=== PATIENT | female | born 1940 | race Caucasian/White ===

== ENCOUNTER 2018-05-19 05:26 | Emergency (ER) | payer MEDICARE, BC, OTHER ==
--- NOTE | 2018-05-19 06:54 | ED ---
Lower Extremity - HPI Summary HPI Summary: Lt knee acute on chronic - twisted while weight bearing - pain along medial aspect. Better w/ rest, heat and ibuprofen. H/o arthritis. PT for Rt knee in the past which was helpful. Denies numbness, tingling, weakness. - History of Current Complaint Chief Complaint: EDExtremityLower Stated Complaint: LT KNEE PAIN Time Seen by Provider: 05/19/18 05:41 Hx Obtained From: Patient Pain Intensity: 7 - Allergies/Home Medications Allergies/Adverse Reactions: Allergies Allergy/AdvReac Type Severity Reaction Status Date / Time SULFA Allergy ANAPHYLACTI Uncoded 05/19/18 05:28 C PMH/Surg Hx/FS Hx/Imm Hx Previously Healthy: Yes Endocrine/Hematology History: Denies: Hx Anticoagulant Therapy - takes ASA daily, Hx Blood Disorders Cardiovascular History: Reports: Hx Atrial Fibrillation - intermittent, Hx Hypertension - BORDERLINE, Hx Rheumatic Fever - A CHILD Musculoskeletal History: Reports: Hx Arthritis - OSTEO- KNEES Denies: Hx Osteoporosis Sensory History: Reports: Hx Cataracts - RIGHT EYE, Hx Contacts or Glasses - GLASSES Denies: Hx Hearing Aid Opthamlomology History: Reports: Hx Cataracts - RIGHT EYE, Hx Contacts or Glasses - GLASSES Psychiatric History: Reports: Hx Anxiety - STRESS RELATED Infectious Disease History: No Infectious Disease History: Denies: Traveled Outside the [place] in Last 30 Days - Family History Known Family History: Positive: Diabetes - father - Social History Occupation: Retired Lives: With Family - Alcohol Use: Occasionally Hx Substance Use: No Substance Use Type: Reports: None Hx Tobacco Use: Yes - not currently Smoking Status (MU): Former Smoker Amount Used/How Often: <1PPD X 5 YEARS Review of Systems Constitutional: Negative Negative: Fever, Chills, Fatigue Positive: no symptoms reported Positive: Arthralgia Skin: Negative Neurological: Negative Psychological: Normal All Other Systems Reviewed And Are Negative: Yes Physical Exam Triage Information Reviewed: Yes Vital Signs On Initial Exam: Initial Vitals Temp Pulse Resp BP Pulse Ox 97.5 F 50 16 122/53 97 05/19/18 05:29 05/19/18 05:29 05/19/18 05:29 05/19/18 05:29 05/19/18 05:29 Vital Signs Reviewed: Yes Diagnostics - Vital Signs Vital Signs Temp Pulse Resp BP Pulse Ox 05/19/18 06:36 42 133/51 98 05/19/18 06:24 54 05/19/18 06:04 41 95 05/19/18 05:29 97.5 F 50 16 122/53 97 - Laboratory Lab Statement: Any lab studies that have been ordered have been reviewed, and results considered in the medical decision making process. Lower Extremity Course/Dx - Diagnoses Provider Diagnoses: Knee sprain Discharge - Sign-Out/Discharge Documenting (check all that apply): Patient Departure - Discharge Plan Condition: Stable Disposition: HOME Patient Education Materials: Osteoarthritis (ED) Referrals: Dennis Castro MD [Primary Care Provider] - Additional Instructions: You appear to have an arthritis flair up. This may be treated as per your handout (ie. heat, gentle stretches, NSAID's with food, topical analgesics, etc) . Follow-up with Dr. Logan for further care (ie. non-weight bearing PT, etc) If you develop numbness, tingling, weakness or inability to bear weight, return to the ED - Billing Disposition and Condition Condition: STABLE Disposition: Home - Attestation Statements Document Initiated by Scribe: Dari
[2018-05-19 07:01] VITALS: BP 137/78
--- NOTE | 2018-05-19 08:02 | RAD ---
Indication: LEFT knee pain following twisting injury. Medial aspect pain. Arthritis. Comparison: No relevant prior exams available on the [facility] for comparison. Technique: LEFT knee: Weightbearing AP and lateral views. Report: Small joint effusion. Negative for fracture. Tricompartmental osteoarthritis with osteophytosis and joint space narrowing most marked at the medial and patellofemoral joints. Associated partial flattening of the articular surfaces and subchondral sclerosis. Resulting slight varus angulation. IMPRESSION: #. Negative for fracture. #. Advanced osteoarthritis. #. Small joint effusion. R1
== END 2018-05-19 07:00 | disposition home or self-care (01) ==
LOC: ED 05:26
DX: M25.562 Pain in left knee (principal); X50.1XXA Overexertion from prolonged static or awkward postures, initial encounter; Y92.9 Unspecified place or not applicable; Z79.82 Long term (current) use of aspirin; I48.91 Unspecified atrial fibrillation; Z87.891 Personal history of nicotine dependence; M25.462 Effusion, left knee; M17.12 Unilateral primary osteoarthritis, left knee
CPT/HCPCS: 99282

== ENCOUNTER 2023-04-30 12:00 | Inpatient (IN) ==
[2023-04-30 12:56] LABS: Hematocrit 30.4 % (35-45); Hemoglobin 10.3 g/dL (11.5-14.3); Mean Corpuscular Hemoglobin 31.5 pg (27-33); Mean Corpuscular Hgb Conc 33.9 g/dL (31-36); Mean Corpuscular Volume 92.8 fL (80-97); Mean Platelet Volume 9.5 fL (7.5-11.2); Platelet Count 105 10^3/uL (150-450); Red Blood Count 3.28 10^6/uL (3.63-4.92); Red Cell Distribution Width 16.6 % (12-17); White Blood Count 8.4 10^3/uL (3.8-11.8)
[2023-04-30 13:16] LABS: Albumin 2.7 g/dL (3.2-5.2); Albumin/Globulin Ratio 1.1 (1-3); C Reactive Protein 40.14 mg/L (<8.01); Creatinine, Serum 0.9 mg/dL (0.51-0.95); Globulin 2.5 g/dL (2-4); Potassium 2.9 mmol/L (3.5-5.0); Total Bilirubin 1.2 mg/dL (0.2-1.0); Total Protein 5.2 g/dL (6.4-8.9); eGFR CKD-EPI 63.8 (>60)
[2023-04-30 13:54] LABS: ABS Basophils 0.1 10^3/uL (0.0-0.1); ABS Monocytes 1.6 10^3/uL (0.0-0.9); ABS Neutrophils 5.6 10^3/uL (1.5-7.6); ABS Nucleated RBC 0.02 10^3/ul; Eosinophil % 0.5 %; Lymphocyte % 12.4 %; Nucleated Red Blood Cells % 0.3 /100 WBC (0.0-0.4)
[2023-04-30 14:33] LABS: Activated Partial Thrombo Time 24.6 seconds (26.0-38.0); INR 1.42 (0.88-1.18)
[2023-04-30 14:46] LABS: High Sensitivity Troponin 1 Hr 93 pg/mL (<15)
[2023-04-30] MEDS ORDERED: Furosemide 40 mg/4 ml IV VIAL IV SLOW PU ONE (15:11)
[2023-04-30] MEDS ORDERED: Potassium Chlor 20 meq TAB.ER PO ONE (15:31)
[2023-04-30] MEDS: KCL 20 MEQ/100 ML IVPREMIX 20 MEQ/100 ML BAG IV SCH ×2 (15:38→17:05)
[2023-04-30] MEDS ORDERED: Ondansetron 4 mg VIAL 2 MG/ML 2 ml VIAL IV ONE (16:04)
[2023-04-30 16:18] LABS: Urine Appearance Clear; Urine Bilirubin Negative (Negative); Urine Blood Negative (Negative); Urine Color Amber; Urine Glucose Negative (Negative); Urine Ketones Negative (Negative); Urine Nitrite Negative (Negative); Urine Protein Negative (Negative); Urine Specific Gravity 1.018 (1.002-1.030); Urine Urobilinogen Positive (Negative)
[2023-04-30] MEDS ORDERED: Ondansetron 4 mg VIAL 2 MG/ML 2 ml VIAL IV PRN (16:50)
[2023-04-30] MEDS ORDERED: Iodixanol (CONTRAST) 320 MG/ML 100 ML SDV IV ONE (17:30)
[2023-04-30] MEDS ORDERED: Senna TAB 8.6 mg TAB PO PRN (17:39)
[2023-04-30] MEDS ORDERED: Enoxaparin 100 MG/ML SYR SUBCUT SCH (18:00)
[2023-04-30] MEDS ORDERED: Remdesivir 100 mg Vial 200 MG in NS 0.9% 250 ml 210 ML IV ONE (18:30)
[2023-04-30] MEDS: dilTIAZem 30 MG TAB PO SCH (20:40)
[2023-04-30 21:00] LABS: Potassium 3.7 mmol/L (3.5-5.0)
[2023-04-30 21:05] LABS: Creatinine, Serum 0.95 mg/dL (0.51-0.95); eGFR CKD-EPI 59.8 (>60)
[2023-05-01] MEDS ORDERED: Lactated Ringers 1000 ml BAG 1,000 ML IV SCH (09:00)
[2023-05-01] MEDS: Enoxaparin 100 MG/ML SYR SUBCUT SCH ×2 (09:41→20:30)
[2023-05-01] MEDS: dilTIAZem 30 MG TAB PO SCH ×2 (09:41→20:31)
[2023-05-01 10:32] LABS: Albumin 2.7 g/dL (3.2-5.2); Creatinine, Serum 0.82 mg/dL (0.51-0.95); Globulin 2.6 g/dL (2-4); Magnesium 1.6 mg/dL (1.9-2.7); Potassium 3.6 mmol/L (3.5-5.0); Total Protein 5.3 g/dL (6.4-8.9); eGFR CKD-EPI 71.4 (>60)
[2023-05-01 10:34] LABS: ABS Lymphocytes 0.4 10^3/uL (1.0-4.8); ABS Monocytes 0.2 10^3/uL (0.0-0.9); ABS Neutrophils 6.1 10^3/uL (1.5-7.6); ABS Nucleated RBC 0.01 10^3/ul; Hematocrit 29.5 % (35-45); Hemoglobin 10.1 g/dL (11.5-14.3); Lymphocyte % 6.5 %; Mean Corpuscular Hemoglobin 31.7 pg (27-33); Mean Corpuscular Hgb Conc 34.2 g/dL (31-36); Mean Corpuscular Volume 92.7 fL (80-97); Mean Platelet Volume 9.4 fL (7.5-11.2); Nucleated Red Blood Cells % 0.1 /100 WBC (0.0-0.4); Platelet Count 115 10^3/uL (150-450); Red Blood Count 3.18 10^6/uL (3.63-4.92); Red Cell Distribution Width 16.4 % (12-17); White Blood Count 6.8 10^3/uL (3.8-11.8)
[2023-05-01 10:47] LABS: INR 1.44 (0.88-1.18)
[2023-05-01] MEDS ORDERED: Magnesium Sulfate 2 gm BAG 2 GM/50 ML BAG IVPB ONE (19:38)
[2023-05-01] MEDS: Remdesivir 100 mg Vial 100 MG in NS 0.9% 250 ml 230 ML IV SCH (22:37)
[2023-05-02 06:25] LABS: ABS Lymphocytes 0.6 10^3/uL (1.0-4.8); ABS Monocytes 0.8 10^3/uL (0.0-0.9); ABS Neutrophils 9.1 10^3/uL (1.5-7.6); ABS Nucleated RBC 0.02 10^3/ul; Hematocrit 27.6 % (35-45); Hemoglobin 9.6 g/dL (11.5-14.3); Lymphocyte % 5.7 %; Mean Corpuscular Hemoglobin 31.9 pg (27-33); Mean Corpuscular Hgb Conc 34.6 g/dL (31-36); Mean Corpuscular Volume 92.2 fL (80-97); Mean Platelet Volume 9.1 fL (7.5-11.2); Nucleated Red Blood Cells % 0.2 /100 WBC (0.0-0.4); Platelet Count 130 10^3/uL (150-450); Red Blood Count 2.99 10^6/uL (3.63-4.92); Red Cell Distribution Width 16.5 % (12-17); White Blood Count 10.5 10^3/uL (3.8-11.8)
[2023-05-02 06:32] LABS: INR 1.6 (0.88-1.18)
[2023-05-02 06:41] LABS: Albumin 2.6 g/dL (3.2-5.2); Calcium 7.9 mg/dL (8.6-10.3); Creatinine, Serum 0.81 mg/dL (0.51-0.95); Globulin 2.6 g/dL (2-4); Potassium 3.2 mmol/L (3.5-5.0); Total Bilirubin 0.9 mg/dL (0.2-1.0); Total Protein 5.2 g/dL (6.4-8.9); eGFR CKD-EPI 72.4 (>60)
[2023-05-02] MEDS: dilTIAZem 30 MG TAB PO SCH ×2 (11:25→21:51)
[2023-05-02] MEDS: Enoxaparin 100 MG/ML SYR SUBCUT SCH ×2 (11:25→21:51)
[2023-05-02] MEDS: KCL 20 MEQ/100 ML IVPREMIX 20 MEQ/100 ML BAG IV SCH ×2 (15:48→18:21)
[2023-05-02] MEDS: Remdesivir 100 mg Vial 100 MG in NS 0.9% 250 ml 230 ML IV SCH (21:51)
[2023-05-03 05:22] LABS: Albumin 2.5 g/dL (3.2-5.2); Calcium 7.7 mg/dL (8.6-10.3); Creatinine, Serum 0.8 mg/dL (0.51-0.95); Globulin 2.4 g/dL (2-4); Potassium 3.6 mmol/L (3.5-5.0); Total Bilirubin 0.9 mg/dL (0.2-1.0); Total Protein 4.9 g/dL (6.4-8.9); eGFR CKD-EPI 73.5 (>60)
[2023-05-03 05:26] LABS: INR 1.51 (0.88-1.18)
[2023-05-03] MEDS: dilTIAZem 30 MG TAB PO SCH ×2 (10:04→21:25)
[2023-05-03] MEDS: Enoxaparin 100 MG/ML SYR SUBCUT SCH ×2 (10:36→21:25)
[2023-05-03 14:33] LABS: Hematocrit 29.1 % (35-45); Hemoglobin 9.8 g/dL (11.5-14.3); Mean Corpuscular Hemoglobin 31.4 pg (27-33); Mean Corpuscular Hgb Conc 33.5 g/dL (31-36); Mean Corpuscular Volume 93.7 fL (80-97); Mean Platelet Volume 9.2 fL (7.5-11.2); Platelet Count 149 10^3/uL (150-450); Red Blood Count 3.11 10^6/uL (3.63-4.92); Red Cell Distribution Width 17.4 % (12-17)
[2023-05-03 15:03] LABS: ABS Lymphocytes 0.3 10^3/uL (1.0-4.8); ABS Neutrophils 7.7 10^3/uL (1.5-7.6); ABS Nucleated RBC 0.01 10^3/ul; Anisocytosis 1+; Lymphocyte % 3.7 %; Nucleated Red Blood Cells % 0.1 /100 WBC (0.0-0.4); Tear Drop Cells 1+
[2023-05-03] MEDS: Remdesivir 100 mg Vial 100 MG in NS 0.9% 250 ml 230 ML IV SCH (21:26)
[2023-05-04 06:29] LABS: INR 1.51 (0.88-1.18)
[2023-05-04 06:44] LABS: Albumin 2.6 g/dL (3.2-5.2); Calcium 7.9 mg/dL (8.6-10.3); Creatinine, Serum 0.78 mg/dL (0.51-0.95); Globulin 2.5 g/dL (2-4); Potassium 3.3 mmol/L (3.5-5.0); Total Bilirubin 0.8 mg/dL (0.2-1.0); Total Protein 5.1 g/dL (6.4-8.9); eGFR CKD-EPI 75.8 (>60)
[2023-05-04 09:55] VITALS: BP 121/65
[2023-05-04] MEDS: dilTIAZem 30 MG TAB PO SCH (09:58)
[2023-05-04] MEDS: Enoxaparin 100 MG/ML SYR SUBCUT SCH (09:59)
== END 2023-05-04 14:52 | disposition home or self-care (01) | DRG 177 ==
LOC: ED 12:00 → MEDTELE 17:30 → EDHOLD 17:59 → SUATTDRO 17:59 → MEDTELE 18:04
PROVIDERS: ADMIT Internal Medicine; ATTEND Student in an Organized Health Care Education/Training Program

== ENCOUNTER 2023-05-11 01:47 | Inpatient (IN) ==
[2023-05-11] MEDS ORDERED: Metoclopramide 5 MG/ML VIAL (10 mg) IV ONE (02:19)
[2023-05-11] MEDS ORDERED: Lactated Ringers 1000 ml BAG 1,000 ML IV ONE (02:19)
[2023-05-11 03:07] LABS: Hematocrit 23.2 % (35-45); Hemoglobin 7.9 g/dL (11.5-14.3); Mean Corpuscular Volume 97.3 fL (80-97); Red Blood Count 2.39 10^6/uL (3.63-4.92); Red Cell Distribution Width 25.2 % (12-17); White Blood Count 12.7 10^3/uL (3.8-11.8)
[2023-05-11 03:13] LABS: INR 1.37 (0.83-1.13)
[2023-05-11 03:21] LABS: Albumin 2.5 g/dL (3.2-5.2); Albumin/Globulin Ratio 1.3 (1-3); Calcium 7.8 mg/dL (8.6-10.3); Creatinine, Serum 1.25 mg/dL (0.51-0.95); Total Bilirubin 1.9 mg/dL (0.2-1.0); Total Protein 4.5 g/dL (6.4-8.9)
[2023-05-11 03:28] LABS: Activated Partial Thrombo Time 89.7 seconds (26.0-38.0)
[2023-05-11 04:06] LABS: Anisocytosis 3+; Polychromasia 1+
[2023-05-11 04:07] LABS: ABS Basophils 0.1 10^3/uL (0.0-0.1); ABS Lymphocytes 0.1 10^3/uL (1.0-4.8); ABS Monocytes 0.2 10^3/uL (0.0-0.9); ABS Neutrophils 12.3 10^3/uL (1.5-7.6); Lymphocyte % 1.1 %; Mean Platelet Volume 11.7 fL (7.5-11.2); Platelet Count 52 10^3/uL (150-450)
[2023-05-11] MEDS ORDERED: Pantoprazole VIAL 40 MG VIAL IV ONE (05:28)
[2023-05-11] MEDS ORDERED: Ondansetron 4 mg VIAL 2 MG/ML 2 ml VIAL IV PRN (07:01)
[2023-05-11] MEDS ORDERED: Polyethylene Glycol 3350 17 GM PACKET PO PRN (07:01)
[2023-05-11] MEDS: Dexamethasone IV 4 MG/ML VIAL 1 ml VIAL IV SLOW PU SCH (13:22)
[2023-05-11] MEDS ORDERED: cefTRIAXone 1 gm/50 mL D5W 1 GM/50 ML BAG IV SCH (18:00)
[2023-05-11] MEDS: Acetaminophen IV 1 GM/100ML 1,000 MG/100 ML BAG IV PRN (18:20)
[2023-05-12] MEDS: Acetaminophen IV 1 GM/100ML 1,000 MG/100 ML BAG IV PRN (02:27)
[2023-05-12 05:38] LABS: Calcium 7.7 mg/dL (8.6-10.3); Creatinine, Serum 1.71 mg/dL (0.51-0.95); Magnesium 1.9 mg/dL (1.9-2.7); Potassium 3.9 mmol/L (3.5-5.0); eGFR CKD-EPI 29.5 (>60)
[2023-05-12 06:29] LABS: Hematocrit 23.8 % (35-45); Hemoglobin 8.1 g/dL (11.5-14.3); Mean Corpuscular Hemoglobin 32.2 pg (27-33); Mean Corpuscular Hgb Conc 34.1 g/dL (31-36); Mean Corpuscular Volume 94.4 fL (80-97); Mean Platelet Volume 10.9 fL (7.5-11.2); Platelet Count 17 10^3/uL (150-450); Red Blood Count 2.52 10^6/uL (3.63-4.92); Red Cell Distribution Width 23.5 % (12-17); White Blood Count 0.5 10^3/uL (3.8-11.8)
[2023-05-12 06:34] LABS: Anisocytosis 3+
[2023-05-12] MEDS ORDERED: Pantoprazole VIAL 40 MG VIAL IV SCH (09:00)
[2023-05-12] MEDS: Dexamethasone IV 4 MG/ML VIAL 1 ml VIAL IV SLOW PU SCH (10:45)
[2023-05-12] MEDS: Pantoprazole VIAL 40 MG VIAL IV SCH ×2 (10:45→20:46)
[2023-05-12] MEDS: Cefepime 1 GM in Dextrose 1 GM/50 ML BAG IV SCH ×2 (10:45→20:46)
[2023-05-12 13:08] LABS: Urine Sodium Concentration < 18 mmol/L
[2023-05-12 13:16] LABS: Osmolality Serum 306 mOsm/kg (275-295)
[2023-05-12 15:25] LABS: Urine Creatinine Concentration 64.09 mg/dL (20.00-320.00)
[2023-05-12 16:28] LABS: Urine Osmo 520 mOsm/kg (150-1150)
[2023-05-12 16:36] LABS: C Reactive Protein 180.4 mg/L (<8.01)
[2023-05-12] MEDS ORDERED: Lactated Ringers 1000 ml BAG 1,000 ML IV SCH (17:00)
[2023-05-12 17:51] LABS: RBC Parasite Smear No Parasites Seen (No Parasite)
[2023-05-12 20:18] LABS: Hemoglobin 8.8 g/dL (11.5-14.3)
[2023-05-12 20:27] LABS: Mean Platelet Volume 10.4 fL (7.5-11.2); Platelet Count 23 10^3/uL (150-450)
[2023-05-13] MEDS ORDERED: Lactated Ringers 1000 ml BAG 500 ML IV ONE ×3 (00:35→23:45)
[2023-05-13] MEDS: Acetaminophen IV 1 GM/100ML 1,000 MG/100 ML BAG IV PRN (03:08)
[2023-05-13] MEDS ORDERED: Lactated Ringers 1000 ml BAG 1,000 ML IV ONE (05:36)
[2023-05-13] MEDS ORDERED: DOXYcycline 100 MG in NS 0.9% 250 ml 250 ML IVPB ONE (06:00)
[2023-05-13 07:01] LABS: Albumin/Globulin Ratio 1.2 (1-3); Calcium 6.8 mg/dL (8.6-10.3); Creatinine, Serum 1.59 mg/dL (0.51-0.95); Globulin 1.7 g/dL (2-4); Potassium 4.2 mmol/L (3.5-5.0); Total Bilirubin 1.5 mg/dL (0.2-1.0); Total Protein 3.7 g/dL (6.4-8.9); eGFR CKD-EPI 32.2 (>60)
[2023-05-13 08:44] LABS: Hematocrit 24.1 % (35-45); Hemoglobin 8.4 g/dL (11.5-14.3); Mean Corpuscular Hemoglobin 32.3 pg (27-33); Mean Corpuscular Volume 92.2 fL (80-97); Mean Platelet Volume 9.7 fL (7.5-11.2); Platelet Count 11 10^3/uL (150-450); Red Blood Count 2.61 10^6/uL (3.63-4.92); Red Cell Distribution Width 19.9 % (12-17); White Blood Count 0.6 10^3/uL (3.8-11.8)
[2023-05-13] MEDS: Pantoprazole VIAL 40 MG VIAL IV SCH ×2 (09:24→21:50)
[2023-05-13] MEDS: Dexamethasone IV 4 MG/ML VIAL 1 ml VIAL IV SLOW PU SCH (09:24)
[2023-05-13] MEDS ORDERED: Albumin Human 25% 25 GM/100 ML BTL IV ONE (09:49)
[2023-05-13] MEDS: Cefepime 1 GM in Dextrose 1 GM/50 ML BAG IV SCH ×2 (10:02→21:44)
[2023-05-13] MEDS ORDERED: Vancomycin 1,500 MG in NS 0.9% 250 ml 250 ML IVPB ONE ×2 (10:19→11:00)
[2023-05-13 10:39] LABS: Acanthocytes 1+
[2023-05-13 10:40] LABS: ABS Neutrophils 0.5 10^3/uL (1.5-7.6); ABS Nucleated RBC 0.01 10^3/ul; Anisocytosis 3+; Eosinophil % 3.5 %; Lymphocyte % 6.3 %; Nucleated Red Blood Cells % 1.2 /100 WBC (0.0-0.4)
[2023-05-13] MEDS ORDERED: Albumin Human 5% 12.5 GM/250 ML BTL IV ONE (10:54)
[2023-05-13] MEDS ORDERED: Vancomycin per Pharmacy 1 EA NOTE FOLLOW UP PRN (10:57)
[2023-05-13 21:16] LABS: Hematocrit 23.9 % (35-45); Hemoglobin 8.6 g/dL (11.5-14.3); Mean Corpuscular Hemoglobin 33.1 pg (27-33); Mean Corpuscular Hgb Conc 35.9 g/dL (31-36); Mean Corpuscular Volume 92.1 fL (80-97); Mean Platelet Volume 9.7 fL (7.5-11.2); Platelet Count 9 10^3/uL (150-450); Red Blood Count 2.59 10^6/uL (3.63-4.92); Red Cell Distribution Width 17.8 % (12-17); White Blood Count 0.7 10^3/uL (3.8-11.8)
[2023-05-13 21:32] LABS: ABS Neutrophils 0.6 10^3/uL (1.5-7.6); Lymphocyte % 6.4 %; Nucleated Red Blood Cells % 0.1 /100 WBC (0.0-0.4)
[2023-05-13 21:42] LABS: Calcium 7.5 mg/dL (8.6-10.3); Creatinine, Serum 1.39 mg/dL (0.51-0.95); Potassium 4.1 mmol/L (3.5-5.0); eGFR CKD-EPI 37.9 (>60)
[2023-05-13 22:11] LABS: Activated Partial Thrombo Time 48.3 seconds (26.0-38.0); INR 1.4 (0.83-1.13)
[2023-05-14] MEDS ORDERED: Norepinephrine 16MCG/ML BAGD5W 4,000 MCG/250 ML BAG IV ONE (00:25)
[2023-05-14] MEDS: Norepinephrine 16MCG/ML BAGD5W 4,000 MCG/250 ML BAG IV SCH ×2 (00:29→12:49)
[2023-05-14 01:11] LABS: Hematocrit 24.1 % (35-45); Hemoglobin 8.7 g/dL (11.5-14.3); Mean Corpuscular Hemoglobin 33.3 pg (27-33); Mean Corpuscular Hgb Conc 35.9 g/dL (31-36); Mean Corpuscular Volume 92.6 fL (80-97); Platelet Count 15 10^3/uL (150-450); Red Cell Distribution Width 18.3 % (12-17); White Blood Count 0.6 10^3/uL (3.8-11.8)
[2023-05-14 04:13] LABS: ABS Neutrophils 0.6 10^3/uL (1.5-7.6); Calcium 7.5 mg/dL (8.6-10.3); Creatinine, Serum 1.35 mg/dL (0.51-0.95); Eosinophil % 2.4 %; Hematocrit 24.4 % (35-45); Hemoglobin 8.7 g/dL (11.5-14.3); Lymphocyte % 7.5 %; Magnesium 1.8 mg/dL (1.9-2.7); Mean Corpuscular Hemoglobin 33.2 pg (27-33); Mean Corpuscular Hgb Conc 35.7 g/dL (31-36); Mean Platelet Volume 8.3 fL (7.5-11.2); Nucleated Red Blood Cells % 0.3 /100 WBC (0.0-0.4); Platelet Count 14 10^3/uL (150-450); Red Blood Count 2.62 10^6/uL (3.63-4.92); Red Cell Distribution Width 19.3 % (12-17); White Blood Count 0.6 10^3/uL (3.8-11.8); eGFR CKD-EPI 39.2 (>60)
[2023-05-14] MEDS ORDERED: Magnesium Sulfate 2 gm BAG 2 GM/50 ML BAG IVPB ONE (05:49)
[2023-05-14] MEDS: Dexamethasone IV 4 MG/ML VIAL 1 ml VIAL IV SLOW PU SCH (09:25)
[2023-05-14] MEDS: Pantoprazole VIAL 40 MG VIAL IV SCH ×2 (09:26→20:59)
[2023-05-14] MEDS: Cefepime 1 GM in Dextrose 1 GM/50 ML BAG IV SCH ×2 (09:52→20:59)
[2023-05-14 11:02] LABS: TSH Ultra Thyroid Stim Horm 0.13 mcIU/mL (0.34-5.60)
[2023-05-14 11:54] LABS: Free T4 1.01 ng/dL (0.61-1.12)
[2023-05-14] MEDS: Vancomycin 1000 MG in NS 0.9% 250 ML IVPB SCH (12:03)
[2023-05-14] MEDS: Acetaminophen IV 1 GM/100ML 1,000 MG/100 ML BAG IV PRN ×2 (14:03→23:58)
[2023-05-14 18:36] LABS: % Iron Saturation 64 % (15-55); .Transferrin < 75 mg/dL (203-362); Iron 67 ug/dL (50-212); Total Iron Binding Capacity 105 mcg/dL (250-450); Unsaturated Iron Binding 38 ug/dL
[2023-05-14 18:56] LABS: Vitamin B12 > 1450 pg/mL (180-914)
[2023-05-14 21:27] LABS: Ferritin 3122.3 ng/mL (11-307)
[2023-05-15] MEDS: Norepinephrine 16MCG/ML BAGD5W 4,000 MCG/250 ML BAG IV SCH ×2 (00:01→07:19)
[2023-05-15] MEDS ORDERED: Piperacillin/Tazobac 3.375 BAG 3.375 GM/100 ML BAG IV ONE (05:48)
[2023-05-15] MEDS ORDERED: Zosyn per Pharmacy NOTE FOLLOW UP SCH (06:00)
[2023-05-15 06:37] LABS: Hematocrit 20.9 % (35-45); Hemoglobin 7.4 g/dL (11.5-14.3); Mean Corpuscular Hemoglobin 32.9 pg (27-33); Mean Corpuscular Hgb Conc 35.5 g/dL (31-36); Mean Corpuscular Volume 92.7 fL (80-97); Platelet Count 3 10^3/uL (150-450); Red Blood Count 2.25 10^6/uL (3.63-4.92); Red Cell Distribution Width 18.7 % (12-17); White Blood Count 0.7 10^3/uL (3.8-11.8)
[2023-05-15 06:55] LABS: Calcium 7.3 mg/dL (8.6-10.3); Creatinine, Serum 1.19 mg/dL (0.51-0.95); Magnesium 2.1 mg/dL (1.9-2.7); Potassium 3.6 mmol/L (3.5-5.0); eGFR CKD-EPI 45.7 (>60)
[2023-05-15] MEDS ORDERED: Thiamine 100 MG/ML 2 ml VIAL 500 MG in NS 0.9% 250 ml 250 ML IV ONE (07:43)
[2023-05-15 08:20] LABS: ABS Lymphocytes 0.1 10^3/uL (1.0-4.8); ABS Neutrophils 0.5 10^3/uL (1.5-7.6); Eosinophil % 1.2 %; Lymphocyte % 15.7 %; Nucleated Red Blood Cells % 0.2 /100 WBC (0.0-0.4)
[2023-05-15] MEDS: Pantoprazole VIAL 40 MG VIAL IV SCH ×2 (08:55→21:08)
[2023-05-15] MEDS: Dexamethasone IV 4 MG/ML VIAL 1 ml VIAL IV SLOW PU SCH (08:55)
[2023-05-15] MEDS: ZOSYN 3.375 GM Q8H per EXTENDED INFUSION IV SCH ×2 (12:28→21:05)
[2023-05-15 13:04] LABS: Anaplasma phagocytophilum Negative (Negative); B. miyamotoi PCR, B Negative (Negative); Babesia divergens/MO-1 Negative (Negative); Babesia ducani Negative (Negative); Ehrlichia chaffeensis Negative (Negative); Ehrlichia ewingii/canis Negative (Negative); Ehrlichia muris eauclairensis Negative (Negative)
[2023-05-15] MEDS: Vancomycin 1000 MG in NS 0.9% 250 ML IVPB SCH (13:58)
[2023-05-15] MEDS ORDERED: Dextrose 50% Syringe 50 ml 25 GM/50 ML SYRINGE IV PUSH PRN (14:01)
[2023-05-15 15:54] LABS: Hematocrit 18.5 % (35-45); Mean Corpuscular Hemoglobin 32.1 pg (27-33); Mean Corpuscular Hgb Conc 34.6 g/dL (31-36); Mean Corpuscular Volume 92.9 fL (80-97); Red Blood Count 1.99 10^6/uL (3.63-4.92); Red Cell Distribution Width 19.2 % (12-17); White Blood Count 0.4 10^3/uL (3.8-11.8)
[2023-05-15 15:58] LABS: ABS Neutrophils 0.3 10^3/uL (1.5-7.6); Hemoglobin 6.4 g/dL (11.5-14.3)
[2023-05-15 16:37] LABS: ABS Lymphocytes 0.1 10^3/uL (1.0-4.8); Eosinophil % 0.7 %; Lymphocyte % 16.1 %; Mean Platelet Volume 7.7 fL (7.5-11.2); Nucleated Red Blood Cells % 0.5 /100 WBC (0.0-0.4); Platelet Count 15 10^3/uL (150-450)
[2023-05-15] MEDS ORDERED: Calcium Carbonate LIQ 1,250 mg/5 ml UDC PO ONE (17:46)
[2023-05-15 22:02] LABS: Hematocrit 21.3 % (35-45); Hemoglobin 7.5 g/dL (11.5-14.3)
[2023-05-16 05:15] LABS: Hematocrit 21.8 % (35-45); Hemoglobin 7.7 g/dL (11.5-14.3)
[2023-05-16] MEDS: ZOSYN 3.375 GM Q8H per EXTENDED INFUSION IV SCH ×2 (05:16→15:01)
[2023-05-16 05:28] LABS: Hematocrit 22.4 % (35-45); Hemoglobin 7.8 g/dL (11.5-14.3); Mean Corpuscular Hemoglobin 32.4 pg (27-33); Mean Corpuscular Volume 92.6 fL (80-97); Mean Platelet Volume 9.3 fL (7.5-11.2); Platelet Count 3 10^3/uL (150-450); Red Blood Count 2.42 10^6/uL (3.63-4.92); Red Cell Distribution Width 16.9 % (12-17); White Blood Count 0.3 10^3/uL (3.8-11.8)
[2023-05-16 05:29] LABS: Calcium 7.9 mg/dL (8.6-10.3); Creatinine, Serum 1.07 mg/dL (0.51-0.95); Potassium 3.5 mmol/L (3.5-5.0); eGFR CKD-EPI 51.9 (>60)
[2023-05-16 05:52] LABS: Hypochromasia 1+; Polychromasia 1+
[2023-05-16 05:53] LABS: ABS Lymphocytes 0.1 10^3/uL (1.0-4.8); ABS Neutrophils 0.2 10^3/uL (1.5-7.6); Lymphocyte % 35.2 %
[2023-05-16] MEDS ORDERED: Potassium Chloride LIQUID 20 MEQ/15 ML LIQUID NG TUBE ONE (06:16)
[2023-05-16] MEDS: Dexamethasone IV 4 MG/ML VIAL 1 ml VIAL IV SLOW PU SCH (08:01)
[2023-05-16] MEDS ORDERED: Insulin GLARGINE 100 un/ml 10 ml VIAL SUBCUT ONE (11:00)
[2023-05-16] MEDS: Acetaminophen IV 1 GM/100ML 1,000 MG/100 ML BAG IV PRN (11:07)
[2023-05-16] MEDS: Pantoprazole VIAL 40 MG VIAL IV SCH (11:07)
[2023-05-16] MEDS ORDERED: Vancomycin Trough Check NOTE FOLLOW UP ONE (11:30)
[2023-05-16] MEDS: Vancomycin 1000 MG in NS 0.9% 250 ML IVPB SCH (14:46)
[2023-05-16 15:01] LABS: Hematocrit 20.9 % (35-45); Hemoglobin 7.4 g/dL (11.5-14.3); Mean Corpuscular Hemoglobin 32.8 pg (27-33); Mean Corpuscular Hgb Conc 35.5 g/dL (31-36); Mean Corpuscular Volume 92.5 fL (80-97); Mean Platelet Volume 8.6 fL (7.5-11.2); Platelet Count 8 10^3/uL (150-450); Red Blood Count 2.26 10^6/uL (3.63-4.92); Red Cell Distribution Width 17.7 % (12-17); White Blood Count 0.3 10^3/uL (3.8-11.8)
[2023-05-16 15:41] LABS: ABS Lymphocytes 0.1 10^3/uL (1.0-4.8); ABS Neutrophils 0.1 10^3/uL (1.5-7.6); Eosinophil % 0.2 %
[2023-05-16] MEDS ORDERED: Vancomycin 750 MG in NS 0.9% 250 ML IVPB SCH (16:00)
[2023-05-16] MEDS ORDERED: Atropine 1% (ORAL/SL) 15 ML BTL SL PRN (16:38)
[2023-05-16] MEDS ORDERED: Ondansetron ODT 4 mg TAB 4 MG TAB SL PRN (16:38)
[2023-05-16] MEDS ORDERED: HYDROmorphone 1 MG/1 ML SYRINGE IV SLOW PU PRN (16:48)
[2023-05-16] MEDS ORDERED: Scopolamine 1 mg/72hr PATCH TRANSDERM SCH (17:00)
[2023-05-16] MEDS ORDERED: fentaNYL 100 mcg/2 ml 50 MCG/ML VIAL IV SLOW PU ONE (17:41)
[2023-05-16] MEDS ORDERED: Lorazepam PYXIS KEY PRN (17:46)
[2023-05-16] MEDS ORDERED: fentaNYL INFUSION 50 mcg/mL VL 2,500 MCG/50 ML VIAL IV SCH (18:00)
[2023-05-16] MEDS ORDERED: LORazepam 2 mg VIAL 1 ml IV PUSH SCH (18:00)
[2023-05-16] MEDS: LORazepam 2 mg VIAL 1 ml IV PUSH SCH ×4 (20:00→23:06)
[2023-05-17] MEDS: LORazepam 2 mg VIAL 1 ml IV PUSH SCH ×9 (00:14→08:02)
[2023-05-17 07:17] VITALS: BP 48/30
[2023-05-17] MEDS ORDERED: fentaNYL 100 mcg/2 ml 50 MCG/ML VIAL IV SLOW PU ONE (07:39)
[2023-05-17] MEDS ORDERED: fentaNYL INFUSION 50 mcg/mL VL 2,500 MCG/50 ML VIAL IV SCH ×3 (07:39→08:00)
[2023-05-17] MEDS ORDERED: Insulin GLARGINE 100 un/ml 10 ml VIAL SUBCUT SCH (09:00)
[2023-05-18] MEDS ORDERED: Vancomycin Trough Check NOTE FOLLOW UP ONE (15:30)
== END 2023-05-17 09:30 | disposition expired | DRG 871 ==
LOC: ED 01:47 → EDHOLD 07:01 → SUATTDRO 07:01 → MEDTELE 09:38 → ICU 10:45
PROVIDERS: ADMIT Student in an Organized Health Care Education/Training Program; ATTEND Internal Medicine Critical Care Medicine